=== PATIENT | male | born 1945 | race Caucasian/White ===

== ENCOUNTER 2019-05-11 10:58 | Emergency (ER) | payer MEDICARE, BC ==
[~2019-05-11] VITALS: Ht 185.4 cm; Wt 84.1 kg
[~2019-05-11 10:58] MED LIST: ASPI-611 PO; ATOR80TA PO; CARV-50 PO; LEVO125T PO; MULT-1085 PO; SACU1TAB PO; UBID100C45 PO
[2019-05-11 11:52] LABS: BASOPHILS % (AUTO) 0.6 % (0-1); EOSINOPHILS % (AUTO) 0.5 % (0-6); HEMATOCRIT 40.9 % (42.0-52.0); HEMOGLOBIN 14.1 g/dl (14.0-17.9); LYMPHOCYTES # (AUTO) 1.4 X10'3 (1.1-4.8); MEAN CORPUSCULAR HEMOGLOBIN 33.3 PG (27.0-31.0); MEAN CORPUSCULAR HGB CONC 34.5 g/dL (33.0-36.5); MEAN CORPUSCULAR VOLUME 96.5 FL (78-98); MEAN PLATELET VOLUME 9.1 FL (7.4-10.4); MONOCYTES # (AUTO) 0.5 X10'3 (0-0.9); MONOCYTES % (AUTO) 7.3 % (2-12); NEUTROPHILS # (AUTO) 4.8 X10'3 (1.8-7.7); NEUTROPHILS % (AUTO) 70.6 % (42-75); PLATELET COUNT 133 X10'3 (140-440); RED BLOOD COUNT 4.24 X10'6 (4.70-6.10); RED CELL DISTRIBUTION WIDTH 13.9 % (11.5-14.5); WHITE BLOOD COUNT 6.8 X10'3 (4.5-11.0)
[2019-05-11 12:10] LABS: PARTIAL THROMBOPLASTIN TIME 48 SECONDS (22-32)
[2019-05-11 12:17] LABS: ALANINE AMINOTRANSFERASE 25 U/L (12-78); ALBUMIN 3.9 G/DL (3.4-5.0); ALBUMIN/GLOBULIN RATIO 1.2 (1.1-1.5); ALKALINE PHOSPHATASE 114 IU/L (46-116); ANION GAP 7 (8-16); ASPARTATE AMINO TRANSFERASE 18 U/L (10-37); BILIRUBIN,TOTAL 0.4 MG/DL (0.1-1.0); BLOOD UREA NITROGEN 14 MG/DL (7-18); BUN/CREATININE RATIO 12.4 (5.4-32.0); CALCIUM 9.2 MG/DL (8.5-10.1); CHLORIDE 108 MMOL/L (99-107); CREATININE 1.13 MG/DL (0.60-1.10); GLUCOSE 124 MG/DL (70-104); POTASSIUM 4.9 MMOL/L (3.5-5.1); SODIUM 140 MMOL/L (135-145); TOTAL CARBON DIOXIDE 25.3 MMOL/L (24-32); TOTAL PROTEIN 7.1 G/DL (6.4-8.2); eGFR 64 ML/MIN
[2019-05-11 12:22] LABS: MAGNESIUM 1.7 MG/DL (1.5-2.4)
--- NOTE | 2019-05-11 12:54 | NUR ---
AFTER LAYING FLAT PATIENT C/O OF LIGHTHEADEDNESS AND PATIENT WENT INTO BIGEMINY
[2019-05-11 12:59] LABS: CLARITY,URINE CLEAR (Clear); COLOR,URINE YELLOW (Yellow); GLUCOSE, URINE NEGATIVE (Neg); KETONES,URINE NEGATIVE (Neg); LEUKOCYTE ESTERASE ,URINE NEGATIVE (Neg); NITRITES, URINE NEGATIVE (Neg); OCCULT BLOOD,URINE TRACE-LYSED (Neg); PH,URINE 5.5 (4.8-8.0); PROTEIN,URINE NEGATIVE (Neg); UROBILINOGEN,URINE 0.2 E.U/dL (0.2-1.0)
[2019-05-11 13:00] LABS: UA COLLECTION TYPE CLN CATCH MIDSTREAM
[2019-05-11 13:06] LABS: MUCUS STRANDS FEW /LPF (Neg); SQUAMOUS EPITHELIAL CELL,UR FEW /LPF (FEW)
[2019-05-11 13:07] LABS: BACTERIA,URINE FEW /HPF (Neg); RBC,URINE 0-2 /HPF (0-2); WBC,URINE 0-4 /HPF (0-4)
[2019-05-11] MEDS ORDERED: normal saline 1000ml 1,000 ML IV ONE (13:25)
--- NOTE | 2019-05-11 13:30 | NUR ---
ATTAMPTED TO INTERROGATE PACER/DEFIB; CALLED COMPANY DUE TO INABILITY TO DOWNLOAD DATA
--- NOTE | 2019-05-11 15:54 | NUR ---
Pt's pacemaker communication device from home is at the bedside at this time.
[2019-05-11 17:21] VITALS: BP 130/75
--- NOTE | 2019-05-11 17:24 | NUR ---
Lalo tristan in ED - 05/11/19 at [address] sheridan fletcherl
--- NOTE | 2019-05-11 17:25 | NUR ---
PREVIOUS NOTE ON WRONG PATIENT
--- NOTE | 2019-05-11 17:50 | NUR ---
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 DISCUSSED PLAN OF CARE WITH PATIENT AND DR BLACKWOOD. PATIENT DOES NOT WANT TO STAY IN THE HOSPITAL. PATIENT HAS NOT FELT DIZZY SINCE RECEIVING 1 LITER OF FLUID. PATIENT EDUCATED AND VERBALIZED IMPORTANCE OF THE FOLLOWING: STAYING HYDRATED; IMPORTANCE OF SLOW POSITION CHANGES AND AWARENESS OF SURROUNDINGS. AT BEDSIDE STATED THAT SHE WILL BE HOME WITH HIM TO ENCOURAGE HYDRATION AND SAFETY WITH POSITION CHANGES.
== END 2019-05-11 18:42 | disposition home or self-care (01) ==
LOC: ER 10:59
DX: I95.1 Orthostatic hypotension (principal); R42 Dizziness and giddiness; Z95.0 Presence of cardiac pacemaker; Z79.82 Long term (current) use of aspirin; Z79.899 Other long term (current) drug therapy
CPT/HCPCS: 36415; 71045; 80053; 81001; 82948; 83735; 83880; 84484; 85025; 85610; 85730; 96360; 99284; J7030

== ENCOUNTER 2021-08-20 07:45 | Day surgery (SDC) | payer OTHER, MEDICARE, BC ==
[2021-08-13 14:39] LABS: BASOPHILS % (AUTO) 0.4 % (0-1); EOSINOPHILS # (AUTO) 0.1 X10'3 (0-0.9); EOSINOPHILS % (AUTO) 1.4 % (0-6); LYMPHOCYTES # (AUTO) 1.8 X10'3 (1.1-4.8); LYMPHOCYTES % (AUTO) 24.4 % (21-51); MEAN CORPUSCULAR HEMOGLOBIN 31.9 PG (27.0-31.0); MEAN CORPUSCULAR HGB CONC 33.6 g/dL (33.0-36.5); MEAN CORPUSCULAR VOLUME 94.8 FL (78-98); MEAN PLATELET VOLUME 9.3 FL (7.4-10.4); MONOCYTES # (AUTO) 0.7 X10'3 (0-0.9); MONOCYTES % (AUTO) 10.2 % (2-12); NEUTROPHILS # (AUTO) 4.6 X10'3 (1.8-7.7); NEUTROPHILS % (AUTO) 63.6 % (42-75); PRE OP HEMATOCRIT 36.8 % (42.0-52.0); PRE OP HEMOGLOBIN 12.4 g/dL (14.0-17.9); PRE OP PLATELET COUNT 140 X10'3 (140-440); RED BLOOD COUNT 3.88 X10'6 (4.70-6.10); RED CELL DISTRIBUTION WIDTH 14.2 % (11.5-14.5)
[2021-08-13 14:52] LABS: ALBUMIN 3.8 G/DL (3.4-5.0); ALBUMIN/GLOBULIN RATIO 1.1 (1.1-1.5); ALKALINE PHOSPHATASE 106 IU/L (46-116); BLOOD UREA NITROGEN 30 MG/DL (7-18); BUN/CREATININE RATIO 21.4 (5.4-32.0); CALCIUM 8.7 MG/DL (8.5-10.1); CHLORIDE 111 MMOL/L (99-107); PRE OP ALT 23 U/L (30-65); PRE OP ANION GAP 8 (8-16); PRE OP AST 18 U/L (10-37); PRE OP BILIRUB, TOTAL 0.2 MG/DL (0.0-1.0); PRE OP GLUCOSE 101 MG/DL (70-104); PRE OP POTASSIUM 5.2 MMOL/L (3.4-5.1); PRE OP SODIUM 144 MMOL/L (135-145); TOTAL PROTEIN 7.2 G/DL (6.4-8.2); eGFR 49 ML/MIN
[2021-08-20] VITALS (10 sets, daily range): BP systolic 94–137; BP diastolic 54–73
[~2021-08-20] VITALS: Ht 185.4 cm; Wt 86.0 kg
[~2021-08-20 07:45] MED LIST changes: +CETI-90 PO; +DABI150C PO; +FINA5TAB3 PO; +FLO0.4C PO; +OXYB15TA19 PO; +PREG100C PO; -SACU1TAB PO; +SACU1TAB7 PO; +SPIR25TA5 PO; +TIOT4MIS5 INH; +cefazolin/dext.iso 2gm/50ml IV ONE; +famotidine 20mg tablet PO ONE; +ringers solution, lacted 1,000 ML IV SCH
[2021-08-20 09:57] LABS: ISTAT CREATININE 1.4 mg/dL (0.8-1.3); ISTAT HGB 11.2 g/dl (14.0-18.0); ISTAT IONIZED CALCIUM 1.29 mmol/L (1.03-1.32); ISTAT K 4.9 mmol/L (3.5-5.1); POC BUN/CREATININE RATIO 17.9 (5.4-32.0)
[2021-08-20] MEDS ORDERED: hydrALAZINE 20mg/ml inj. IV PRN (10:30)
[2021-08-20] MEDS ORDERED: fentaNYL/PF 50MCG/1 ML 2ML syringe IV PRN ×2 (10:30)
[2021-08-20] MEDS ORDERED: ringers solution, lacted 1,000 ML IV SCH (10:30)
[2021-08-20] MEDS ORDERED: morphine 2 MG/ML inj. syringe IV PRN (10:30)
[2021-08-20] MEDS ORDERED: enalaprilat dihydrate 2.5mg/2ml vial IV PRN (10:30)
[2021-08-20] MEDS ORDERED: morphine 4 MG/ML inj SYRINge IV PRN (10:30)
[2021-08-20] MEDS ORDERED: ondansetron/PF 4mg/2ml inj IV PRN (10:30)
[2021-08-20] MEDS ORDERED: BUPIVAcaine 0.5% inj/PF 30 ML ONE (10:55)
[2021-08-20] MEDS ORDERED: FENTANYL CITRATE/PF 50 MCG/1 ML VIAL ONE (11:18)
[2021-08-20] MEDS ORDERED: midazolam 1 mg/ML 2ml injection ONE (11:19)
[2021-08-20] MEDS ORDERED: etomidate 2mg/ml inj. ONE (11:21)
[2021-08-20] MEDS ORDERED: albumin (Human) 5% 250ml 250 ML IV ONE (12:14)
[2021-08-20] MEDS ORDERED: sugammadex 200mg/2ml injection IV ONE (12:30)
[2021-08-20] MEDS ORDERED: BUPIVAcaine 0.5% inj/PF 30 ml vial IJ ONE (12:36)
[2021-08-20] MEDS ORDERED: dexamethasone sod phosphate 4mg/ml inj. ONE (12:50)
[2021-08-20] MEDS ORDERED: ondansetron/PF 4mg/2ml inj ONE (12:50)
[2021-08-20] MEDS ORDERED: rocuronium 10mg/ml inj IV ONE ×2 (12:50)
--- NOTE | 2021-08-20 13:06 | NUR ---
Received from OR via [facility] , accompanied by Anesthesiologist ABRAHAN and report given by Anesthesiolgist. PATIENT WITH 20G PIV IN RIGHT HAND RUNNING LR AT 100. DENIES PAIN AT THIS TIME. 4 LAP SITES PRESENT AND ARE CDI. COURSE COUGH, ENCOURAGED TO DB AND C. Addendum: 08/20/21 at 1326 by Joel Aguilera RN, RN Amended: Links added.
--- NOTE | 2021-08-20 15:16 | NUR ---
ALL DISCHARGE CRITERIA HAS BEEN MET. VSS, PAIN AT A TOLERABLE LEVEL, VOIDING AND ABLE TO SAFELY AMBULATE AND TRANSFER SELF. IV TAKEN OUT WITHOUT ANY COMPLICATIONS. ALL DISCHARGE INSTRUCTIONS COVERED WITH PATIENT AND ALL QUESTIONS ANSWERED. PATIENT TAKEN OUT VIA WHEELCHAIR TO PERSONAL VEHICLE WHERE FAMILY/FRIEND DROVE PATIENT HOME. CATHETER PACKET AND EDUCATION GIVEN TO PATIENT AND TO . 150CC IN CATHETER BAG AFTER INABILITY TO VOID. WALKED BACK AND FORTH TO BATHROOM IN ATTEMPT TO VOID. WILL FOLLOW UP IN 2 DAYS FOR CATHETER REMOVAL. Addendum: 08/20/21 at 1520 by Joel Aguilera RN, RN Amended: Links added.
== END 2021-08-20 15:16 | disposition home or self-care (01) ==
LOC: PAS 07:45
PROVIDERS: ATTEND Surgery
DX: K40.90 Unilateral inguinal hernia, without obstruction or gangrene, not specified as recurrent (principal); I25.10 Atherosclerotic heart disease of native coronary artery without angina pectoris; I13.0 Hypertensive heart and chronic kidney disease with heart failure and stage 1 through stage 4 chronic kidney disease, or unspecified chronic kidney disease; N18.4 Chronic kidney disease, stage 4 (severe); I50.22 Chronic systolic (congestive) heart failure; I48.0 Paroxysmal atrial fibrillation; E78.5 Hyperlipidemia, unspecified; N40.0 Benign prostatic hyperplasia without lower urinary tract symptoms; J44.9 Chronic obstructive pulmonary disease, unspecified; I25.2 Old myocardial infarction; E03.9 Hypothyroidism, unspecified; M19.90 Unspecified osteoarthritis, unspecified site; F17.210 Nicotine dependence, cigarettes, uncomplicated; Z79.82 Long term (current) use of aspirin; Z79.899 Other long term (current) drug therapy; Z79.01 Long term (current) use of anticoagulants; Z86.11 Personal history of tuberculosis; Z90.49 Acquired absence of other specified parts of digestive tract; Z98.41 Cataract extraction status, right eye; Z98.42 Cataract extraction status, left eye; Z86.14 Personal history of Methicillin resistant Staphylococcus aureus infection; Z98.890 Other specified postprocedural states; Z20.822 Contact with and (suspected) exposure to COVID-19; Z95.810 Presence of automatic (implantable) cardiac defibrillator
CPT/HCPCS: 36415; 49650; 80047; 80053; 85025; C1758; C1781; J1100; J2250; J2405; J3010; J3490; J7030; J7120; P9045; S0020; U0003; U0005; Z7506; Z7508; Z7512; A4215; A4618

== ENCOUNTER 2023-01-06 08:25 | Day surgery (SDC) | payer OTHER ==
[~2023-01-06] VITALS: Ht 185.4 cm; Wt 76.3 kg
[~2023-01-06 08:25] MED LIST changes: +ALB0.5UD IH; -ASPI-611 PO; +CLOP75TA34 PO; -FINA5TAB3 PO; +FINA5TAB38 PO; +FLUT50DI3 IH; -PREG100C PO; +TIOT4MIS2 INH; -TIOT4MIS5 INH; -UBID100C45 PO; -cefazolin/dext.iso 2gm/50ml IV ONE; -famotidine 20mg tablet PO ONE; -ringers solution, lacted 1,000 ML IV SCH
[2023-01-06] MEDS ORDERED: normal saline 1000ml 1,000 ML IV PRN (08:55)
[2023-01-06 09:04] VITALS: BP 101/61; PULSE 60; RESP 14; TEMP 97.8; O2SAT 97
[2023-01-06 09:29] LABS: BASOPHILS % (AUTO) 0.6 % (0-1); EOSINOPHILS % (AUTO) 0.7 % (0-6); HEMATOCRIT 41.4 % (42.0-52.0); HEMOGLOBIN 13.8 g/dl (14.0-17.9); LYMPHOCYTES # (AUTO) 1.3 X10'3 (1.1-4.8); LYMPHOCYTES % (AUTO) 20.9 % (21-51); MEAN CORPUSCULAR HEMOGLOBIN 32.3 PG (27.0-31.0); MEAN CORPUSCULAR HGB CONC 33.4 g/dL (33.0-36.5); MEAN CORPUSCULAR VOLUME 96.8 FL (78-98); MEAN PLATELET VOLUME 9.1 FL (7.4-10.4); MONOCYTES # (AUTO) 0.5 X10'3 (0-0.9); MONOCYTES % (AUTO) 8.7 % (2-12); NEUTROPHILS # (AUTO) 4.2 X10'3 (1.8-7.7); NEUTROPHILS % (AUTO) 69.1 % (42-75); PLATELET COUNT 119 X10'3 (140-440); RED BLOOD COUNT 4.27 X10'6 (4.70-6.10); WHITE BLOOD COUNT 6.1 X10'3 (4.5-11.0)
[2023-01-06] MEDS ORDERED: DABI75CA8 PO (10:03)
[2023-01-06] MEDS ORDERED: EMPA25TA PO (10:03)
[2023-01-06] MEDS ORDERED: CARV3.12 PO (10:03)
[2023-01-06] MEDS ORDERED: LEVO100C4 PO (10:03)
[2023-01-06] MEDS ORDERED: Diclofenac (10:03)
[2023-01-06] MEDS ORDERED: OXYB15TA19 PO (10:03)
[2023-01-06] MEDS ORDERED: SACU1TAB (10:04)
[2023-01-06] MEDS ORDERED: SPIR25TA PO (10:05)
[2023-01-06] MEDS ORDERED: ASPI-1265 PO (10:05)
[2023-01-06] MEDS ORDERED: LIDOcaine 1% 30ml preserv. free vial ONE (10:21)
[2023-01-06] MEDS ORDERED: fentaNYL/PF 50MCG/1 ML 2ML syringe ONE (10:38)
[2023-01-06] MEDS ORDERED: midazolam 1 mg/ML 2ml injection ONE (10:38)
[2023-01-06 10:45] VITALS: BP 119/52; PULSE 64; RESP 14; O2SAT 95
[2023-01-06 10:50] VITALS: BP 119/59; PULSE 60; RESP 16; O2SAT 94
--- NOTE | 2023-01-06 11:00 | NUR ---
Procedure cancelled. Patient to follow up with PCP.
== END 2023-01-06 11:25 | disposition home or self-care (01) ==
LOC: SSTAY O 08:25
PROVIDERS: ATTEND Radiology Vascular & Interventional Radiology
DX: R91.1 Solitary pulmonary nodule (principal); Z53.8 Procedure and treatment not carried out for other reasons; Z86.73 Personal history of transient ischemic attack (TIA), and cerebral infarction without residual deficits; Z79.899 Other long term (current) drug therapy; Z79.82 Long term (current) use of aspirin; F17.210 Nicotine dependence, cigarettes, uncomplicated; Z72.89 Other problems related to lifestyle
CPT/HCPCS: 36415; 71250; 85025; 85610; J2250; J3010; J3490; J7030; A4615; A4620

== ENCOUNTER 2023-11-22 14:15 | Inpatient (IN) | payer OTHER ==
[2023-11-19 09:04] LABS: ALBUMIN 3.8 G/DL (3.4-5.0); ANION GAP 8 (8-16); BASOPHILS % (AUTO) 0.3 % (0-1); BLOOD UREA NITROGEN 29 MG/DL (7-18); BUN/CREATININE RATIO 19.2 (10.0-20.0); CALCIUM 9.1 MG/DL (8.5-10.1); CHLORIDE 107 MMOL/L (99-107); CREATININE 1.51 MG/DL (0.60-1.10); EOSINOPHILS % (AUTO) 0.6 % (0-6); GLUCOSE 109 MG/DL (70-104); HEMATOCRIT 39.2 % (42.0-52.0); LYMPHOCYTES # (AUTO) 1.5 X10'3 (1.1-4.8); LYMPHOCYTES % (AUTO) 21.3 % (21-51); MEAN CORPUSCULAR HEMOGLOBIN 32.3 PG (27.0-31.0); MEAN CORPUSCULAR HGB CONC 33.3 g/dL (33.0-36.5); MEAN PLATELET VOLUME 9.2 FL (7.4-10.4); MONOCYTES # (AUTO) 0.7 X10'3 (0-0.9); MONOCYTES % (AUTO) 9.4 % (2-12); NEUTROPHILS # (AUTO) 4.8 X10'3 (1.8-7.7); NEUTROPHILS % (AUTO) 68.4 % (42-75); PLATELET COUNT 118 X10'3 (140-440); RED BLOOD COUNT 4.04 X10'6 (4.70-6.10); SODIUM 141 MMOL/L (135-145); TOTAL CARBON DIOXIDE 25.9 MMOL/L (24-32); WHITE BLOOD COUNT 7.1 X10'3 (4.5-11.0); eGFR 45 ML/MIN
[2023-11-19 09:09] LABS: APTT 29 SECONDS (22-32)
[2023-11-22] VITALS (14 sets, daily range): BP systolic 87–116; BP diastolic 46–59; PULSE 55–71; RESP 15–18; TEMP 98–98.7; O2SAT 90–98
[~2023-11-22] VITALS: Ht 185.4 cm; Wt 73.9 kg
[~2023-11-22 14:15] MED LIST changes: -ALB0.5UD IH; +ASPI-1265 PO; -CARV-50 PO; +CARV3.12 PO; -CETI-90 PO; -CLOP75TA34 PO; -DABI150C PO; +DABI75CA8 PO; +Diclofenac; +EMPA25TA PO; -FLO0.4C PO; -FLUT50DI3 IH; +LEVO100C4 PO; -LEVO125T PO; -MULT-1085 PO; +SACU1TAB PO; -SACU1TAB7 PO; -TIOT4MIS2 INH
[2023-11-22] MEDS ORDERED: MULT-1085 PO (14:35)
[2023-11-22] MEDS ORDERED: APIX5TAB3 PO (14:35)
[2023-11-22] MEDS ORDERED: FLO0.4C PO (14:35)
[2023-11-22] MEDS ORDERED: CARV6.256 PO (14:35)
[2023-11-22] MEDS ORDERED: CLOP-32 PO (14:35)
[2023-11-22] MEDS ORDERED: heparin 1,000unit/ml 10ml vial 10 ML ONE (15:20)
[2023-11-22] MEDS ORDERED: phenylephrine 10mg/ml inj. -priapism dosing ONE (15:20)
[2023-11-22] MEDS ORDERED: DOPamine 400mg/D5W 250ml 0 ML IV ONE (15:20)
[2023-11-22] MEDS ORDERED: LIDOcaine 1% 30ml preserv. free vial ONE (15:20)
[2023-11-22] MEDS ORDERED: atropine 0.1mg/ml 10ml syringe ONE (15:21)
[2023-11-22] MEDS ORDERED: iohexol 350MG/ML 100ml bottle IV ONE ×2 (15:21→16:40)
[2023-11-22] MEDS: diphenhydrAMINE 25mg capsule PO PRN (16:17)
[2023-11-22] MEDS: LORazepam 0.5 MG tablet PO PRN (16:17)
[2023-11-22] MEDS: normal saline 1,000 ML IV SCH (16:18)
[2023-11-22] MEDS ORDERED: clopidogrel 300mg tablet ONE (17:09)
[2023-11-22] MEDS ORDERED: DOPamine 400MG/D5W 250ML CRITICAL CARE IV PRN (17:50)
[2023-11-22] MEDS ORDERED: pseudoephedrine 30mg tablet PO PRN (17:50)
[2023-11-22] MEDS ORDERED: HYDROcodone/acetaminophen 10/325mg tab PO PRN (17:50)
[2023-11-22] MEDS ORDERED: HYDROcodone/acetaminophen 5mg/325mg tablet PO PRN (17:50)
[2023-11-22] MEDS: tamsulosin 0.4mg capsule PO SCH (22:08)
[2023-11-22] MEDS: carvedilol 6.25mg tablet PO SCH (22:09)
[2023-11-22] MEDS: atorvastatin 20mg tablet PO SCH (22:09)
[2023-11-22] MEDS: sacubitril/valsartan 24mg-26mg tablet PO SCH (22:11)
[2023-11-23] VITALS: BP 104/55; PULSE 66; RESP 17; O2SAT 96
[2023-11-23 02:00] VITALS: BP 101/55; PULSE 60; RESP 16; TEMP 98.9; O2SAT 97
[2023-11-23 07:04] VITALS: BP 107/53; PULSE 60; RESP 16; TEMP 97.6; O2SAT 96
[2023-11-23] MEDS: levoTHYROXINE 25mcg tablet PO SCH (07:15)
[2023-11-23] MEDS: clopidogrel 75mg tablet PO SCH (07:16)
[2023-11-23] MEDS: EMPAGLIFLOZIN 25 MG TABLET PO SCH (07:16)
[2023-11-23] MEDS: multivitamins, therapeutics tablet PO SCH (07:18)
[2023-11-23] MEDS: finasteride 5mg tablet PO SCH (07:18)
[2023-11-23 08:38] VITALS: RESP 16; O2SAT 96
[2023-11-23] MEDS ORDERED: spironolactone 25 MG tablet PO SCH (12:00)
[2023-11-23] MEDS ORDERED: apixaban 5mg tablet PO SCH (20:00)
== END 2023-11-23 11:14 | disposition home or self-care (01) | DRG 36 ==
LOC: SSTAY O 14:15 → PCU 3S 17:53 → UNDOADMIN 17:53 → PCU 3S 17:58
PROVIDERS: ADMIT Student in an Organized Health Care Education/Training Program; ATTEND Internal Medicine Interventional Cardiology
PROC: 037K3DZ Dilation of Right Internal Carotid Artery with Intraluminal Device, Percutaneous Approach (ICD-10-PCS; principal; 2023-11-22)
PROC: B4101ZZ Fluoroscopy of Abdominal Aorta using Low Osmolar Contrast (ICD-10-PCS; 2023-11-22)
DX: I65.21 Occlusion and stenosis of right carotid artery (principal); I48.91 Unspecified atrial fibrillation; I25.10 Atherosclerotic heart disease of native coronary artery without angina pectoris; E78.5 Hyperlipidemia, unspecified; I71.40 Abdominal aortic aneurysm, without rupture, unspecified; I10 Essential (primary) hypertension; I73.9 Peripheral vascular disease, unspecified; Z95.810 Presence of automatic (implantable) cardiac defibrillator
CPT/HCPCS: 36415; 37215; 80048; 85025; 85610; 85730; 93005; 99152; 99153; A6258; C1725; C1760; C1769; C1876; C1884; C1887; C1894; G0378; J0461; J1265; J1644; J2370; J3490; J7030; Q0163; Q9967

== ENCOUNTER 2024-06-11 13:42 | Inpatient (IN) | payer OTHER, MEDICARE ==
[~2024-06-11] VITALS: Ht 185.4 cm; Wt 78.5 kg
[~2024-06-11 13:42] MED LIST changes: +APIX5TAB3 PO; -ASPI-1265 PO; +ATOR-429 PO; -ATOR80TA PO; -CARV3.12 PO; +CARV6.256 PO; +CLOP-32 PO; -DABI75CA8 PO; -Diclofenac; +FLO0.4C PO; +MULT-1085 PO; -OXYB15TA19 PO
[2024-06-11] MEDS ORDERED: iohexol 350MG/ML 100ml bottle IV ONE (14:38)
[2024-06-11 14:53] LABS: BASOPHILS % (AUTO) 0.5 % (0-1); EOSINOPHILS % (AUTO) 0.6 % (0-6); HEMATOCRIT 41.6 % (42.0-52.0); HEMOGLOBIN 14.1 g/dl (14.0-17.9); LYMPHOCYTES # (AUTO) 1.5 X10'3 (1.1-4.8); LYMPHOCYTES % (AUTO) 19.8 % (21-51); MEAN CORPUSCULAR HEMOGLOBIN 33.1 PG (27.0-31.0); MEAN CORPUSCULAR HGB CONC 33.8 g/dL (33.0-36.5); MEAN CORPUSCULAR VOLUME 97.9 FL (78-98); MEAN PLATELET VOLUME 9.9 FL (7.4-10.4); MONOCYTES # (AUTO) 0.7 X10'3 (0-0.9); MONOCYTES % (AUTO) 9.5 % (2-12); NEUTROPHILS # (AUTO) 5.1 X10'3 (1.8-7.7); NEUTROPHILS % (AUTO) 69.6 % (42-75); PLATELET COUNT 119 X10'3 (140-440); RED BLOOD COUNT 4.25 X10'6 (4.70-6.10); RED CELL DISTRIBUTION WIDTH 14.8 % (11.5-14.5); WHITE BLOOD COUNT 7.3 X10'3 (4.5-11.0)
[2024-06-11 15:09] LABS: APTT 27 SECONDS (22-32); PROTHROMBIN TIME 10.5 SECONDS (9.0-12.0)
[2024-06-11 15:16] LABS: ALBUMIN 3.1 G/DL (3.4-5.0); BLOOD UREA NITROGEN 28 MG/DL (7-18); BUN/CREATININE RATIO 22.2 (10.0-20.0); CALCIUM 8.9 MG/DL (8.5-10.1); CHLORIDE 110 MMOL/L (99-107); CREATININE 1.26 MG/DL (0.60-1.10); POTASSIUM 4.6 MMOL/L (3.5-5.1); SODIUM 143 MMOL/L (135-145); eCRCL 55 ML/MIN; eGFR 55 ML/MIN
[2024-06-11 15:22] LABS: ANION GAP 10 (8-16); GLUCOSE 139 MG/DL (70-104); TOTAL CARBON DIOXIDE 22.8 MMOL/L (24-32)
[2024-06-11] MEDS: normal saline 1000ML IV soln IVB ONE (15:30)
[2024-06-11] MEDS ORDERED: potassium Cl 20 mEq SR tablet PO PRN ×2 (17:45)
[2024-06-11] MEDS ORDERED: ondansetron/PF 4mg/2ml inj IV PRN (17:45)
[2024-06-11] MEDS ORDERED: magnesium hydroxide 30ml (MOM) UD suspension PO PRN (17:45)
[2024-06-11] MEDS ORDERED: potassium Cl 40MEQ/1/2NS 520ml 520 ML IV PRN (17:45)
[2024-06-11] MEDS ORDERED: magnesium sulf-water 4G/100mL 100 ML IV PRN (17:45)
[2024-06-11] MEDS ORDERED: mag hydrox/Alum hydrox/simeth 30ml oral suspension PO PRN (17:45)
[2024-06-11] MEDS ORDERED: labetalol 20mg/4ml (5mg/ml) syringe IV PRN (17:45)
[2024-06-11] MEDS ORDERED: magnesium sulf-water 2g/50mL 50 ML IV PRN (17:45)
[2024-06-11] MEDS ORDERED: acetaminophen 325mg tablet PO PRN (17:45)
[2024-06-11] MEDS: PERFLUTREN PROTEIN-A MICROSPHR (Optison) 0.22 MG/ML 3ML VIAL IV ONE (17:50)
[2024-06-11] MEDS: docusate sod 100mg capsule PO SCH (19:11)
[2024-06-11] MEDS: K and/or MAG REPLACEMENT MC SCH (19:11)
[2024-06-11] MEDS: apixaban 5mg tablet PO SCH (19:24)
[2024-06-11] MEDS: normal saline 1000ml 1,000 ML IV SCH (19:24)
[2024-06-11] MEDS: aspirin 81mg, enteric-coated 1 TAB TABLET.DR PO SCH (19:24)
[2024-06-11] MEDS ORDERED: heparin, porcine 5000 units/ml vial SQ SCH (20:00)
[2024-06-11] MEDS: atorvastatin 20mg tablet PO SCH (21:11)
[2024-06-11 21:21] LABS: BILIRUBIN,URINE NEGATIVE (Neg); CLARITY,URINE CLEAR (Clear); COLOR,URINE YELLOW (Yellow); GLUCOSE, URINE 500 mg/dl (Neg); KETONES,URINE NEGATIVE (Neg); LEUKOCYTE ESTERASE ,URINE NEGATIVE (Neg); NITRITES, URINE NEGATIVE (Neg); OCCULT BLOOD,URINE NEGATIVE (Neg); PROTEIN,URINE NEGATIVE (Neg); UROBILINOGEN,URINE 0.2 E.U/dL (0.2-1.0)
[2024-06-11 21:23] LABS: UA COLLECTION TYPE CLN CATCH MIDSTREAM
[2024-06-12 02:49] LABS: BASOPHILS % (AUTO) 0.5 % (0-1); EOSINOPHILS # (AUTO) 0.1 X10'3 (0-0.9); EOSINOPHILS % (AUTO) 1.2 % (0-6); HEMATOCRIT 38.2 % (42.0-52.0); HEMOGLOBIN 13.1 g/dl (14.0-17.9); LYMPHOCYTES # (AUTO) 1.7 X10'3 (1.1-4.8); LYMPHOCYTES % (AUTO) 29.6 % (21-51); MEAN CORPUSCULAR HEMOGLOBIN 33.5 PG (27.0-31.0); MEAN CORPUSCULAR HGB CONC 34.3 g/dL (33.0-36.5); MEAN CORPUSCULAR VOLUME 97.8 FL (78-98); MEAN PLATELET VOLUME 9.8 FL (7.4-10.4); MONOCYTES # (AUTO) 0.6 X10'3 (0-0.9); MONOCYTES % (AUTO) 10.7 % (2-12); NEUTROPHILS # (AUTO) 3.4 X10'3 (1.8-7.7); PLATELET COUNT 109 X10'3 (140-440); RED BLOOD COUNT 3.91 X10'6 (4.70-6.10); RED CELL DISTRIBUTION WIDTH 14.3 % (11.5-14.5); WHITE BLOOD COUNT 5.8 X10'3 (4.5-11.0)
[2024-06-12 03:06] LABS: ALANINE AMINOTRANSFERASE 25 U/L (12-78); ALBUMIN 3.3 G/DL (3.4-5.0); ALBUMIN/GLOBULIN RATIO 1.3 (1.1-1.5); ALKALINE PHOSPHATASE 79 IU/L (46-116); ANION GAP 6 (8-16); ASPARTATE AMINO TRANSFERASE 15 U/L (10-37); BILIRUBIN,TOTAL 0.4 MG/DL (0.1-1.0); BLOOD UREA NITROGEN 22 MG/DL (7-18); BUN/CREATININE RATIO 18.6 (10.0-20.0); CALCIUM 8.5 MG/DL (8.5-10.1); CHLORIDE 111 MMOL/L (99-107); CHOL/HDL RATIO 1.9 (0.00-4.99); CHOLESTEROL 98 MG/DL (0-200); CREATININE 1.18 MG/DL (0.60-1.10); GLUCOSE 90 MG/DL (70-104); HDL CHOLESTEROL 51 MG/DL (35-60); LDL CHOLESTEROL 43 MG/DL (50-100); POTASSIUM 4.8 MMOL/L (3.5-5.1); SODIUM 143 MMOL/L (135-145); TOTAL PROTEIN 5.9 G/DL (6.4-8.2); TRIGLYCERIDES 39 MG/DL (20-135); eCRCL 58 ML/MIN; eGFR 60 ML/MIN
[2024-06-12 03:10] LABS: HEMOGLOBIN A1C 5.9 % (4.5-6.2)
[2024-06-12 07:00] VITALS: BP 143/67; PULSE 66; RESP 14; TEMP 97.5; O2SAT 98
[2024-06-12 10:00] VITALS: BP 134/71; PULSE 58; RESP 16; TEMP 98.2; O2SAT 98
[2024-06-12 13:47] LABS: THYROID STIMULATING HORMONE 1.97 ulU/ml (0.34-4.50)
[2024-06-12] MEDS: levoTHYROXINE 100mcg tablet PO ONE (14:09)
[2024-06-12] MEDS: EMPAGLIFLOZIN 25 MG TABLET PO ONE (14:09)
[2024-06-12 18:00] VITALS: BP 131/74; PULSE 62; RESP 16; TEMP 98.3; O2SAT 98
[2024-06-12 20:00] VITALS: RESP 16; O2SAT 98
[2024-06-12] MEDS ORDERED: EMPAGLIFLOZIN 25 MG TABLET PO SCH (20:05)
[2024-06-12] MEDS: apixaban 5mg tablet PO SCH (20:36)
[2024-06-12] MEDS: atorvastatin 20mg tablet PO SCH (20:36)
[2024-06-12] MEDS: finasteride 5mg tablet PO SCH (21:33)
[2024-06-12 22:00] VITALS: BP 149/77; PULSE 66; RESP 18; TEMP 97.6; O2SAT 97
[2024-06-13 06:00] VITALS: BP 136/76; PULSE 71; RESP 16; TEMP 98.1; O2SAT 97
[2024-06-13 06:23] LABS: BASOPHILS % (AUTO) 0.4 % (0-1); EOSINOPHILS # (AUTO) 0.1 X10'3 (0-0.9); EOSINOPHILS % (AUTO) 0.9 % (0-6); HEMATOCRIT 39.9 % (42.0-52.0); HEMOGLOBIN 13.5 g/dl (14.0-17.9); LYMPHOCYTES # (AUTO) 1.7 X10'3 (1.1-4.8); LYMPHOCYTES % (AUTO) 25.4 % (21-51); MEAN CORPUSCULAR HEMOGLOBIN 32.9 PG (27.0-31.0); MEAN CORPUSCULAR HGB CONC 33.9 g/dL (33.0-36.5); MEAN CORPUSCULAR VOLUME 97.2 FL (78-98); MONOCYTES # (AUTO) 0.7 X10'3 (0-0.9); MONOCYTES % (AUTO) 10.1 % (2-12); NEUTROPHILS # (AUTO) 4.3 X10'3 (1.8-7.7); NEUTROPHILS % (AUTO) 63.2 % (42-75); PLATELET COUNT 110 X10'3 (140-440); RED BLOOD COUNT 4.11 X10'6 (4.70-6.10); RED CELL DISTRIBUTION WIDTH 14.3 % (11.5-14.5); WHITE BLOOD COUNT 6.9 X10'3 (4.5-11.0)
[2024-06-13 06:50] LABS: ALANINE AMINOTRANSFERASE 23 U/L (12-78); ALBUMIN 3.4 G/DL (3.4-5.0); ALBUMIN/GLOBULIN RATIO 1.3 (1.1-1.5); ALKALINE PHOSPHATASE 79 IU/L (46-116); ANION GAP 8 (8-16); ASPARTATE AMINO TRANSFERASE 14 U/L (10-37); BILIRUBIN,TOTAL 0.6 MG/DL (0.1-1.0); BLOOD UREA NITROGEN 21 MG/DL (7-18); BUN/CREATININE RATIO 16.9 (10.0-20.0); CALCIUM 8.9 MG/DL (8.5-10.1); CHLORIDE 112 MMOL/L (99-107); CREATININE 1.24 MG/DL (0.60-1.10); FREE T4 (FREE THYROXINE) 0.74 NG/DL (0.73-1.40); GLUCOSE 101 MG/DL (70-104); POTASSIUM 4.7 MMOL/L (3.5-5.1); SODIUM 144 MMOL/L (135-145); TOTAL CARBON DIOXIDE 24.2 MMOL/L (24-32); TOTAL PROTEIN 6.1 G/DL (6.4-8.2); eCRCL 55 ML/MIN; eGFR 57 ML/MIN
[2024-06-13] MEDS ORDERED: levoTHYROXINE 100mcg tablet PO SCH (07:00)
[2024-06-13 08:00] VITALS: RESP 16; O2SAT 98
[2024-06-13] MEDS ORDERED: EMPAGLIFLOZIN 25 MG TABLET PO SCH (08:00)
[2024-06-13] MEDS: levoTHYROXINE 100mcg tablet PO SCH (09:29)
[2024-06-13] MEDS: EMPAGLIFLOZIN 25 MG TABLET PO SCH (09:30)
[2024-06-13 10:00] VITALS: BP 118/58; PULSE 70; RESP 16; TEMP 98.3; O2SAT 97
== END 2024-06-13 17:10 | disposition home or self-care (01) | DRG 69 ==
LOC: ER 13:43 → ED HOLD 17:48 → ORTHO 4S 06-12 06:42
PROVIDERS: ADMIT Nurse Practitioner Family; ATTEND Nurse Practitioner Family
PROC: B3251ZZ Computerized Tomography (CT Scan) of Bilateral Common Carotid Arteries using Low Osmolar Contrast (ICD-10-PCS; principal; 2024-06-11)
PROC: B32G1ZZ Computerized Tomography (CT Scan) of Bilateral Vertebral Arteries using Low Osmolar Contrast (ICD-10-PCS; 2024-06-11)
PROC: B32R1ZZ Computerized Tomography (CT Scan) of Intracranial Arteries using Low Osmolar Contrast (ICD-10-PCS; 2024-06-11)
PROC: B3281ZZ Computerized Tomography (CT Scan) of Bilateral Internal Carotid Arteries using Low Osmolar Contrast (ICD-10-PCS; 2024-06-11)
DX: G45.9 Transient cerebral ischemic attack, unspecified (principal); J18.9 Pneumonia, unspecified organism; N17.9 Acute kidney failure, unspecified; G45.3 Amaurosis fugax; I13.0 Hypertensive heart and chronic kidney disease with heart failure and stage 1 through stage 4 chronic kidney disease, or unspecified chronic kidney disease; J44.0 Chronic obstructive pulmonary disease with (acute) lower respiratory infection; N18.30 Chronic kidney disease, stage 3 unspecified; G89.29 Other chronic pain; M54.9 Dorsalgia, unspecified; I25.10 Atherosclerotic heart disease of native coronary artery without angina pectoris; N40.0 Benign prostatic hyperplasia without lower urinary tract symptoms; E78.00 Pure hypercholesterolemia, unspecified; G35 Multiple sclerosis; I50.9 Heart failure, unspecified; I25.2 Old myocardial infarction; Z87.891 Personal history of nicotine dependence; Z95.5 Presence of coronary angioplasty implant and graft; Z95.810 Presence of automatic (implantable) cardiac defibrillator
CPT/HCPCS: 36415; 70450; 70496; 70498; 71045; 80048; 80053; 80061; 81003; 82948; 83036; 83605; 83735; 84145; 84439; 84443; 84484; 85025; 85610; 85730; 87040; 87081; 93306; 96360; 97161; 99285; A6213; A6446; A6449; G0378; J7030; Q9967